=== PATIENT | male | born 1945 | race Caucasian/White ===

== ENCOUNTER 2019-09-12 10:34 | Outpatient (CLI) | payer MEDICARE, SELFPAY ==
[2019-09-12 11:03] LABS: Basophils Percent Auto 0.7 % (0.2-1.2); Eosinophils Absolute Auto 0.2 K/mm3 (0-0.3); Eosinophils Percent Auto 5.3 % (0-4.4); Hematocrit 47.1 % (42.0-52.0); Hemoglobin 15.5 g/dL (14.0-18.0); Immature Granulocyte Absolute 0.01 K/mm3 (0.00-0.031); Immature Granulocyte Percent A 0.2 % (0-0.5); Immature Platelet Fraction Pct 3.8 % (0.9-11.2); Lymphocytes Absolute Auto 1.95 K/mm3 (0.9-3.2); Lymphocytes Percent Auto 45.2 % (18.3-44.2); Mean Corpuscular HGB Conc 32.9 g/dl (32-36); Mean Corpuscular Volume 88.2 fl (80-100); Mean Platelet Volume 10.7 fl (7.4-10.4); Monocytes Absolute Auto 0.5 K/mm3 (0.1-0.6); Monocytes Percent Auto 12.1 % (2.6-8.5); Neutrophils Absolute Auto 1.6 K/mm3 (1.3-6.7); Neutrophils Percent Auto 36.5 % (45.5-73.1); Platelet Count Result 137 k/mm3 (150-375); Red Blood Count 5.34 M/mm3 (4.6-6.20); Red Cell Distribution Width 14.6 % (11.5-14.5); White Blood Count 4.3 K/mm3 (4.5-10.0)
[2019-09-12 11:14] LABS: Blood Urea Nitrogen 18 mg/dL (9-20); Calcium 9.2 mg/dL (8.4-10.2); Carbon Dioxide 30 mmol/L (22-30); Chloride 104 mmol/L (98-107); Cholesterol 141 mg/dL (0-200); Estimated Glomerular Filt Rate > 60; Glucose 129 mg/dL (75-110); HDL Direct 32 mg/dL; Potassium 4.6 mmol/L (3.4-5.0); Sodium 139 mmol/L (137-145); Triglycerides 159 mg/dL (<150)
[2019-09-12 11:15] LABS: Hemoglobin A1C 6.6 % (<5.7)
[2019-09-12 11:25] LABS: LDL Cholesterol Direct 71 mg/dL
[2019-09-12 11:42] LABS: Creatinine Urine 44.7 mg/dL
[2019-09-12 11:43] LABS: Prostate Specific Antigen 0.8 ng/mL (< OR = 4.0)
[2019-09-12 11:51] LABS: MALB Creatinine Ratio < 13.4 mg/g (0-30); Microalbumin Urine Random < 6.0 mg/L (0-16.7)
== END 2019-09-12 10:35 | disposition home or self-care (01) ==
LOC: ANHLAB 10:45
PROVIDERS: PCP Internal Medicine; Visit Provider Internal Medicine
DX: Z12.5 Encounter for screening for malignant neoplasm of prostate (principal); D69.6 Thrombocytopenia, unspecified; E11.9 Type 2 diabetes mellitus without complications; E78.5 Hyperlipidemia, unspecified
CPT/HCPCS: 36415; 80048; 80061; 82043; 83036; 84153; 85025; 85055; G0103

== ENCOUNTER 2020-03-16 09:30 | Outpatient (CLI) | payer MEDICARE, SELFPAY ==
[2020-03-16 09:54] LABS: Hemoglobin A1C 6.6 % (<5.7)
[2020-03-16 10:00] LABS: Alanine Aminotransferase 20 U/L (4-50); Alkaline Phosphatase 44 U/L (38-126); Anion Gap 6 mmol/L (8-16); Aspartate Amino Transferase 34 U/L (17-59); Bilirubin,Total 0.8 mg/dL (0.2-1.3); Blood Urea Nitrogen 25 mg/dL (9-20); Calcium 9.2 mg/dL (8.4-10.2); Carbon Dioxide 31 mmol/L (22-30); Chloride 102 mmol/L (98-107); Cholesterol 140 mg/dL (0-200); Estimated Glomerular Filt Rate > 60; Glucose 147 mg/dL (75-110); HDL Direct 33 mg/dL; Potassium 4.5 mmol/L (3.4-5.0); Sodium 139 mmol/L (137-145); Triglycerides 156 mg/dL (<150)
[2020-03-16 10:11] LABS: LDL Cholesterol Direct 76 mg/dL
[2020-03-16 12:24] LABS: Vitamin D 25 Hydroxy 51.6 ng/mL
== END 2020-03-16 09:31 | disposition home or self-care (01) ==
PROVIDERS: PCP Internal Medicine; Visit Provider Internal Medicine
DX: E55.9 Vitamin D deficiency, unspecified (principal); E11.9 Type 2 diabetes mellitus without complications; Z51.81 Encounter for therapeutic drug level monitoring; E78.5 Hyperlipidemia, unspecified
CPT/HCPCS: 36415; 80053; 80061; 82306; 83036

== ENCOUNTER 2020-09-14 11:22 | Outpatient (CLI) | payer MEDICARE, SELFPAY ==
[2020-09-14 12:08] LABS: Basophils Percent Auto 0.6 % (0.2-1.2); Eosinophils Absolute Auto 0.2 K/mm3 (0-0.3); Eosinophils Percent Auto 3.7 % (0-4.4); Hematocrit 48.9 % (42.0-52.0); Lymphocytes Absolute Auto 1.99 K/mm3 (0.9-3.2); Lymphocytes Percent Auto 43.1 % (18.3-44.2); Mean Corpuscular HGB Conc 32.7 g/dl (32-36); Mean Corpuscular Volume 88.6 fl (80-100); Mean Platelet Volume 10.9 fl (7.4-10.4); Monocytes Absolute Auto 0.5 K/mm3 (0.1-0.6); Monocytes Percent Auto 10.6 % (2.6-8.5); Neutrophils Absolute Auto 1.9 K/mm3 (1.3-6.7); Platelet Count Result 151 k/mm3 (150-375); Red Blood Count 5.52 M/mm3 (4.6-6.20); Red Cell Distribution Width 14.3 % (11.5-14.5); White Blood Count 4.6 K/mm3 (4.5-10.0)
[2020-09-14 12:16] LABS: Alanine Aminotransferase 20 U/L (4-50); Albumin Level 4.2 g/dL (3.5-5.1); Alkaline Phosphatase 51 U/L (38-126); Anion Gap 4 mmol/L (8-16); Aspartate Amino Transferase 33 U/L (17-59); Bilirubin,Total 0.8 mg/dL (0.2-1.3); Blood Urea Nitrogen 18 mg/dL (9-20); Calcium 8.9 mg/dL (8.4-10.2); Carbon Dioxide 29 mmol/L (22-30); Chloride 107 mmol/L (98-107); Cholesterol 140 mg/dL (0-200); Estimated Glomerular Filt Rate > 60; Glucose 133 mg/dL (75-110); HDL Direct 34 mg/dL; Potassium 4.4 mmol/L (3.4-5.0); Sodium 140 mmol/L (137-145); Triglycerides 139 mg/dL (<150)
[2020-09-14 12:27] LABS: LDL Cholesterol Direct 77 mg/dL
[2020-09-14 12:29] LABS: Hemoglobin A1C 6.7 % (<5.7)
[2020-09-14 12:48] LABS: MALB Creatinine Ratio < 9.1 mg/g (0-30); Microalbumin Urine Random < 6.0 mg/L (0-16.7)
== END 2020-09-14 11:23 | disposition home or self-care (01) ==
PROVIDERS: PCP Internal Medicine; Visit Provider Nurse Practitioner
DX: Z12.5 Encounter for screening for malignant neoplasm of prostate (principal); E11.9 Type 2 diabetes mellitus without complications; D64.9 Anemia, unspecified; E78.2 Mixed hyperlipidemia
CPT/HCPCS: 36415; 80053; 80061; 82043; 83036; 85025

== ENCOUNTER 2021-03-23 10:10 | Outpatient (CLI) | payer MEDICARE, SELFPAY ==
[2021-03-23 11:01] LABS: Alanine Aminotransferase 18 U/L (4-50); Albumin Level 4.2 g/dL (3.5-5.1); Alkaline Phosphatase 47 U/L (38-126); Anion Gap 9 mmol/L (8-16); Aspartate Amino Transferase 30 U/L (17-59); Bilirubin,Total 0.8 mg/dL (0.2-1.3); Blood Urea Nitrogen 19 mg/dL (9-20); Calcium 9.3 mg/dL (8.4-10.2); Carbon Dioxide 27 mmol/L (22-30); Chloride 106 mmol/L (98-107); Cholesterol 128 mg/dL (0-200); Estimated Glomerular Filt Rate > 60; Glucose 151 mg/dL (65-110); HDL Direct 35 mg/dL; Potassium 4.5 mmol/L (3.4-5.0); Sodium 142 mmol/L (137-145); Triglycerides 139 mg/dL (<150)
[2021-03-23 11:12] LABS: LDL Cholesterol Direct 65 mg/dL
[2021-03-23 11:17] LABS: Hemoglobin A1C 6.8 % (<5.7)
[2021-03-23 11:31] LABS: Prostate Specific Antigen 0.7 ng/mL (< OR = 4.0)
[2021-03-23 12:11] LABS: Creatinine Urine 57.5 mg/dL
[2021-03-23 12:15] LABS: Microalbumin Urine Random 6.3 mg/L (0-16.7)
[2021-03-23 13:41] LABS: Vitamin D 25 Hydroxy 52.8 ng/mL
== END 2021-03-23 10:11 | disposition home or self-care (01) ==
PROVIDERS: PCP Internal Medicine; Visit Provider Internal Medicine
DX: Z12.5 Encounter for screening for malignant neoplasm of prostate (principal); Z51.81 Encounter for therapeutic drug level monitoring; E11.9 Type 2 diabetes mellitus without complications; E78.5 Hyperlipidemia, unspecified; E55.9 Vitamin D deficiency, unspecified
CPT/HCPCS: 36415; 80053; 80061; 82043; 82306; 83036; 84153; G0103

== ENCOUNTER 2021-10-03 10:34 | Outpatient (CLI) | payer MEDICARE, SELFPAY ==
[2021-10-03 11:28] LABS: Alanine Aminotransferase 19 U/L (4-50); Alkaline Phosphatase 59 U/L (38-126); Anion Gap 6 mmol/L (8-16); Aspartate Amino Transferase 35 U/L (17-59); Blood Urea Nitrogen 19 mg/dL (9-20); Calcium 8.6 mg/dL (8.4-10.2); Carbon Dioxide 26 mmol/L (22-30); Chloride 106 mmol/L (98-107); Cholesterol 133 mg/dL (0-200); Estimated Glomerular Filt Rate > 60; Glucose 131 mg/dL (65-110); HDL Direct 32 mg/dL; Potassium 4.1 mmol/L (3.4-5.0); Sodium 138 mmol/L (137-145); Triglycerides 146 mg/dL (<150)
[2021-10-03 11:34] LABS: LDL Cholesterol Direct 56 mg/dL
[2021-10-03 11:43] LABS: Albumin Level 4.1 g/dL (3.5-5.1)
[2021-10-03 11:49] LABS: Hemoglobin A1C 6.3 % (<5.7)
== END 2021-10-03 10:35 | disposition home or self-care (01) ==
LOC: ANHLAB 10:38
PROVIDERS: PCP Internal Medicine; Visit Provider Nurse Practitioner
DX: E78.2 Mixed hyperlipidemia (principal); E11.9 Type 2 diabetes mellitus without complications
CPT/HCPCS: 36415; 80053; 80061; 83036

== ENCOUNTER 2022-04-17 11:04 | Outpatient (CLI) | payer MEDICARE, SELFPAY ==
[2022-04-17 12:18] LABS: Alanine Aminotransferase 24 U/L (6-50); Albumin Level 4.3 g/dL (3.5-5.1); Alkaline Phosphatase 73 U/L (38-126); Anion Gap 8 mmol/L (8-16); Aspartate Amino Transferase 36 U/L (17-59); Blood Urea Nitrogen 20 mg/dL (9-20); Calcium 8.7 mg/dL (8.4-10.2); Carbon Dioxide 28 mmol/L (22-30); Chloride 103 mmol/L (98-107); Cholesterol 153 mg/dL (0-200); Estimated Glomerular Filt Rate > 60; Glucose 178 mg/dL (65-110); HDL Direct 34 mg/dL; Potassium 4.3 mmol/L (3.4-5.0); Sodium 139 mmol/L (137-145); Triglycerides 162 mg/dL (<150)
[2022-04-17 12:29] LABS: Hemoglobin A1C 7.1 % (<5.7)
[2022-04-17 12:31] LABS: LDL Cholesterol Direct 77 mg/dL
[2022-04-17 12:48] LABS: Prostate Specific Antigen 0.9 ng/mL (< OR = 4.0)
[2022-04-17 13:02] LABS: Vitamin D 25 Hydroxy 41.1 ng/mL
== END 2022-04-17 11:05 | disposition home or self-care (01) ==
LOC: ANHLAB 11:05
PROVIDERS: PCP Internal Medicine; Visit Provider Internal Medicine
DX: E78.5 Hyperlipidemia, unspecified (principal); Z12.5 Encounter for screening for malignant neoplasm of prostate; Z51.81 Encounter for therapeutic drug level monitoring; E55.9 Vitamin D deficiency, unspecified; E11.9 Type 2 diabetes mellitus without complications
CPT/HCPCS: 36415; 80053; 80061; 82306; 83036; 84153; G0103

== ENCOUNTER 2022-10-19 10:55 | Outpatient (CLI) | payer MEDICARE, SELFPAY ==
[2022-10-19 11:53] LABS: Alanine Aminotransferase 22 U/L (6-50); Albumin Level 4.2 g/dL (3.5-5.1); Alkaline Phosphatase 55 U/L (38-126); Anion Gap 6 mmol/L (8-16); Aspartate Amino Transferase 32 U/L (17-59); Blood Urea Nitrogen 19 mg/dL (9-20); Calcium 8.8 mg/dL (8.4-10.2); Carbon Dioxide 27 mmol/L (22-30); Chloride 103 mmol/L (98-107); Cholesterol 138 mg/dL (0-200); Estimated Glomerular Filt Rate > 60; Glucose 143 mg/dL (65-110); HDL Direct 32 mg/dL; Potassium 4.4 mmol/L (3.4-5.0); Sodium 136 mmol/L (137-145); Triglycerides 184 mg/dL (<150)
[2022-10-19 12:04] LABS: LDL Cholesterol Direct 68 mg/dL
[2022-10-19 12:07] LABS: Hemoglobin A1C 7.1 % (<5.7)
== END 2022-10-19 10:56 | disposition home or self-care (01) ==
PROVIDERS: Nurse Practitioner; PCP Family Medicine; Visit Provider Family Medicine
DX: E78.5 Hyperlipidemia, unspecified (principal); E11.9 Type 2 diabetes mellitus without complications
CPT/HCPCS: 36415; 80053; 80061; 83036

== ENCOUNTER 2024-02-15 09:17 | Outpatient (CLI) | payer MEDICARE, SELFPAY ==
[2024-02-15 09:46] LABS: Basophils Percent Auto 0.4 % (0.2-1.2); Eosinophils Absolute Auto 0.1 K/mm3 (0-0.3); Eosinophils Percent Auto 1.9 % (0-4.4); Hematocrit 41.9 % (42.0-52.0); Hemoglobin 13.2 g/dL (14.0-18.0); Immature Granulocyte Absolute 0.01 K/mm3 (0.00-0.031); Immature Granulocyte Percent A 0.2 % (0-0.5); Lymphocytes Absolute Auto 1.72 K/mm3 (0.9-3.2); Lymphocytes Percent Auto 36.2 % (18.3-44.2); Mean Corpuscular HGB Conc 31.5 g/dl (32-36); Mean Corpuscular Hemoglobin 25.8 pg (26-34); Mean Corpuscular Volume 81.8 fl (80-100); Mean Platelet Volume 9.4 fl (7.4-10.4); Monocytes Absolute Auto 0.5 K/mm3 (0.1-0.6); Monocytes Percent Auto 10.9 % (2.6-8.5); Neutrophils Absolute Auto 2.4 K/mm3 (1.3-6.7); Neutrophils Percent Auto 50.4 % (45.5-73.1); Platelet Count Result 132 k/mm3 (150-375); Red Blood Count 5.12 M/mm3 (4.6-6.20); Red Cell Distribution Width 17.8 % (11.5-14.5); White Blood Count 4.8 K/mm3 (4.5-10.0)
[2024-02-15 09:59] LABS: Alanine Aminotransferase 13 U/L (6-50); Albumin Level 3.9 g/dL (3.5-5.1); Alkaline Phosphatase 76 U/L (38-126); Anion Gap 10 mmol/L (4-12); Aspartate Amino Transferase 20 U/L (17-59); Bilirubin,Total 1.2 mg/dL (0.2-1.3); Blood Urea Nitrogen 17 mg/dL (9-20); Calcium 8.8 mg/dL (8.4-10.2); Carbon Dioxide 30 mmol/L (22-30); Chloride 99 mmol/L (98-107); Cholesterol 114 mg/dL (0-200); Estimated Glomerular Filt Rate > 60; Glucose 167 mg/dL (65-110); HDL Direct 30 mg/dL; Sodium 139 mmol/L (137-145); Triglycerides 185 mg/dL (<150)
[2024-02-15 10:09] LABS: LDL Cholesterol Direct 40 mg/dL
[2024-02-15 10:29] LABS: Prostate Specific Antigen 2.1 ng/mL (< OR = 4.0)
[2024-02-15 10:34] LABS: Hemoglobin A1C 7.5 % (<5.7)
== END 2024-02-15 09:18 | disposition home or self-care (01) ==
LOC: ANHLAB 09:30
PROVIDERS: PCP Nurse Practitioner Family; Visit Provider Internal Medicine
DX: Z12.5 Encounter for screening for malignant neoplasm of prostate (principal); E55.9 Vitamin D deficiency, unspecified; E78.2 Mixed hyperlipidemia; E11.9 Type 2 diabetes mellitus without complications; I48.0 Paroxysmal atrial fibrillation; D69.6 Thrombocytopenia, unspecified
CPT/HCPCS: 36415; 80053; 80061; 82306; 83036; 84153; 85025; G0103

== ENCOUNTER 2024-03-27 10:01 | Emergency (ER) | payer MEDICARE, SELFPAY ==
--- NOTE | ~2024-03-27 | CT_ITS ---
EXAMINATION: CT brain wo con DATE: 03/27/2024 10:36 INDICATION: Head injury. Fall. TECHNIQUE: Computed tomography (CT) of the head was performed without intravenous contrast. The mA wa s adjusted according to patient size. Iterative reconstruction technique was employed. The dose-lengt h product was 681.00 mGy-cm. COMPARISON: None FINDINGS: There is an old infarct in right frontal lobe. There are scattered areas of low attenuation in the cerebral white matter. There is no intracranial hemorrhage, acute infarction, or abnormal int racranial mass lesion. There is ex vacuo dilatation of right lateral ventricle. There is mild mucosal thickening in the paranasal sinuses. There are likely changes of ocular lens replacement surgeries. The mastoid air cells are normal. IMPRESSION: 1. Old infarct in the right frontal lobe. 2. Moderate nonspecific cerebral white matter disease, which likely represents chronic small vessel i schemic disease. Reviewed, dictated and finalized at location A. IMPRESSION: 1. Old infarct in the right frontal lobe. 2. Moderate nonspecific cerebral white matter disease, which likely represents chronic small vessel ischemic disease.
--- NOTE | ~2024-03-27 | CT_ITS ---
EXAMINATION: CT cervical spine wo con DATE: 03/27/2024 10:37 INDICATION: Neck injury. Fall. TECHNIQUE: Computed tomography (CT) of the cervical spine was performed without intravenous contrast. Automated exposure control and iterative reconstruction technique were employed. The dose-length pro duct was 421.09 mGy-cm. COMPARISON: None FINDINGS: There is mild kyphosis of cervical spine. There is mild chronic anterior wedging of C7 and T1 vertebral bodies. There is moderately decreased disc height at C3-C4 and severely decreased disc h eight from C4-C5 through C6-C7. The following disc levels are specifically discussed: C2-C3: There is no uncovertebral joint osteoarthritis. There is severe right and mild left facet join t osteoarthritis. There is no neural foraminal stenosis. There is no central canal stenosis. C3-C4: There is severe right and mild left uncovertebral joint osteoarthritis. There is severe right and moderate left facet joint osteoarthritis. There is mild right neural foraminal stenosis. There is mild central canal stenosis. C4-C5: There is severe right and mild left uncovertebral joint osteoarthritis. There is severe bilate ral facet joint osteoarthritis. There is mild bilateral neural foraminal stenosis. There is mild cent ral canal stenosis. C5-C6: There is severe bilateral uncovertebral joint osteoarthritis. There is mild bilateral facet chung int osteoarthritis. There is mild bilateral neural foraminal stenosis. There is mild central canal st enosis. C6-C7: There is mild right and severe left uncovertebral joint osteoarthritis. There is severe bilate ral facet joint osteoarthritis. There is mild bilateral neural foraminal stenosis. There is mild cent ral canal stenosis. C7-T1: There is no uncovertebral joint osteoarthritis. There is severe bilateral facet joint osteoart hritis. There is mild bilateral neural foraminal stenosis. There is no central canal stenosis. IMPRESSION: 1. No fracture. 2. Severe cervical spondylosis. Reviewed, dictated and finalized at location A.
[2024-03-27 10:08] VITALS: BP 158/66; PULSE 60; RESP 16; TEMP 36.6; O2SAT 100
--- NOTE | 2024-03-27 11:25 | ED.FALL ---
HPI - Fall General Chief Complaint: Fall Stated Complaint: fell at 0300 hit back of head, takes elequis Time Seen by Provider: 03/27/24 10:12 Source: patient Mode of arrival: ambulatory Limitations: no limitations History of Present Illness HPI Narrative: 79-year-old with a history of CVA, diabetes, paroxysmal atrial fib on Eliquis here with the complaints of fall the middle of the night. Patient states that he lost his balance while he was trying to go to the restroom. He denies LOC. He states that he hit is head against the nightstand. Noticed some blood on the pillow this morning. complaint: fall Onset (ago): hour(s) (6) Fall from: standing Place fall occurred: home Loss of consciousness: none Prolonged down time: no Context: other (Lost balance) Location of injury: head Associated symptoms (after fall): denies Related Data Home Medications Medication Instructions Recorded Confirmed vit C 250 mg-vit E 200 unit-zinc cap PO 09/20/20 02/29/24 ox 12.5 [id number] capsule (ICaps AREDS2) acetaminophen 500 mg tablet 1,000 mg PO .COMPLEX PRN 06/26/23 02/29/24 (Tylenol Extra Strength) ascorbic acid (vitamin C) 500 mg 500 mg PO DAILY 06/26/23 02/29/24 tablet cholecalciferol (vitamin D3) 125 125 mcg PO DAILY 06/26/23 02/29/24 mcg (5,000 unit) capsule magnesium oxide 400 mg (241.3 mg 400 mg PO DAILY 06/26/23 02/29/24 magnesium) tablet sotalol 80 mg tablet 80 mg PO DAILY 06/26/23 02/29/24 Allergies Allergy/AdvReac Type Severity Reaction Status Date / Time No Known Allergies Allergy Verified 03/27/24 10:02 Review of Systems Review of Systems: All systems reviewed & are unremarkable except as noted in HPI and below Constitutional: Constitutional: Reports no additional constitutional complaints Eyes: Eyes: Reports no additional eye complaints ENT: Reports system reviewed and no additional complaints, except as documented Cardiovascular: Cardiovascular: Reports no additional cardiovascular complaints Respiratory: Respiratory: Reports no additional respiratory complaints Gastrointestinal: Gastrointestinal: Reports no additional gastrointestinal complaints Musculoskeletal: Musculoskeletal: Reports no additional musculoskeletal complaints Neurologic: Reports system reviewed and no additional complaints, except as documented [facility] Past Medical History Medical History CVA (cerebral vascular accident) Mixed hyperlipidemia Paroxysmal atrial fibrillation Polyosteoarthritis, unspecified Screening for colon cancer Screening for prostate cancer Thrombocytopenia, unspecified Type 2 diabetes mellitus without complications Vitamin D deficiency Surgical History Surgical History History of appendectomy Family History Family History (Reviewed 03/27/24 @ 11: by Tomasz Dockery MD) Sibling Family history of type 2 diabetes mellitus Diabetes mellitus Social History Social History Smoking packs per day: 0.5 Smoking cigarettes per day: 10.0 Years smoked: 10 Smoking pack-years: 5.00 Smoking status: Former smoker Tobacco type: cigarettes Second hand tobacco smoke exposure: No Smoking end date: 06/04/75 Alcohol intake: former Substance use: never Substance use type: does not use Lack of Transportation: No Lack of Food: Never True Current Housing: I Have Housing Concerned About Future Housing: No Difficulty Paying Gas/Electric Bills: No Difficulty Paying for Meds: No Currently Unemployed: No Education: Bachelor's Degree Difficulty w/ Childcare or Family Care: No Exam Narrative: GENERAL: Well-appearing, well-nourished, and in no acute distress. HEAD: Normocephalic, atraumatic.A small puncture wound on the scalp EYES: PERRLA and EOMI. ENT: Nares clear, NECK: Supple. CHEST: Clear to auscultation. No respiratory distress. HEART: Regular rate and rhythm. No murmur heard. Normal peripheral pulses. ABDOMEN: Soft, nontender, nondistended, normal active bowel sounds. EXTREMITIES: Normal range of motion. No edema. SKIN: Warm, dry, no rash. NEURO: No focal deficits. Alert and oriented x3. PSYCH: Normal mood and affect. Course Course Emergency Course: Patient comfortably resting in no discomfort. Informed him and his friend about his CT findings. Advised fall precautions continue home medication Vital Signs Vital signs: Vital Signs Temperature 36.6 C 03/27/24 10:08 Pulse Rate 60 03/27/24 10:08 Respiratory Rate 16 03/27/24 10:08 Blood Pressure 158/66 H 03/27/24 10:08 Pulse Oximetry 100 03/27/24 10:08 Oxygen Delivery Room Air 03/27/24 10:08 Temperature 36.6 C 03/27/24 10:08 Pulse Rate 60 03/27/24 10:08 Respiratory Rate 16 03/27/24 10:08 Blood Pressure 158/66 H 03/27/24 10:08 Pulse Oximetry 100 03/27/24 10:08 Oxygen Delivery Room Air 03/27/24 10:08 MDM - Fall MDM Narrative Medical decision making narrative: 79-year-old with a history of CVA, paroxysmal atrial fib on Eliquis history of fall last night home with no LOC is neurologically intact will do a CT of the head to make sure has no intracerebral bleed. Differential Diagnosis Differential diagnosis: Likely concussion with loss of consciousness Medical Records Attestation: I reviewed the patient's medical records. Imaging Data Radiologist's impression: ITS Impressions Head CT 03/27/24 10:38 IMPRESSION: 1. Old infarct in the right frontal lobe. 2. Moderate nonspecific cerebral white matter disease, which likely represents chronic small vessel ischemic disease. Cervical Spine CT 03/27/24 10:45 IMPRESSION: 1. No fracture. 2. Severe cervical spondylosis. Discharge Plan Discharge Clinical Impression: Minor head injury Qualifiers: Encounter type: initial encounter Qualified Code(s): S09.90XA - Unspecified injury of head, initial encounter Patient Disposition: Home, Self-Care Condition: Stable Instructions: Head Injury (ED) Additional Instructions: Continue home medications, fall precautions. Follow-up with your primary doctor as needed Prescriptions: No Action doxepin 10 mg capsule 20 mg PO QHS Qty: 60 4RF ICaps AREDS2 250 mg-200 unit -12.5 mg-1 mg capsule PO ascorbic acid (vitamin C) 500 mg tablet 500 mg PO DAILY cholecalciferol (vitamin D3) 125 mcg (5,000 unit) capsule 125 mcg PO DAILY magnesium oxide 400 mg (241.3 mg magnesium) tablet 400 mg PO DAILY Rx Instructions: 2xday sotalol 80 mg tablet 80 mg PO DAILY Rx Instructions: 2xday acetaminophen [Tylenol Extra Strength] 500 mg tablet 1,000 mg PO .COMPLEX PRN Rx Instructions: 1,000 mg orally Q8H PRN; Eliquis 5 mg tablet 5 mg PO BID Qty: 60 4RF (DME) [employer] Test Strip See Rx Instructions .ROUTE .COMPLEX Qty: 200 1RF Dose Instruction: USE TO TEST BLOOD SUGAR 2 TIMES DAILY Rx Instructions: USE TO TEST BLOOD SUGAR 2 TIMES DAILY (DME) blood-glucose meter [OneTouch Ultra2 Meter] Misc See Rx Instructions .Route Qty: 1 1RF Rx Instructions: As directed (DME) lancets [OneTouch UltraSoft 2 Lancet] 30 gauge misc See Rx Instructions .Route Qty: 100 0RF Rx Instructions: As directed; test daily Follow-up/Referrals: Dusty Gary DO [Primary Care Provider] - Time of Disposition: 11:34
[2024-03-27 11:46] VITALS: BP 146/68; PULSE 77; RESP 17; TEMP 36.6; O2SAT 98
== END 2024-03-27 11:47 | disposition home or self-care (01) ==
PROVIDERS: Emergency Provider Family Medicine; PCP Internal Medicine
DX: S09.90XA Unspecified injury of head, initial encounter (principal); W22.03XA Walked into furniture, initial encounter; Z79.01 Long term (current) use of anticoagulants; I48.0 Paroxysmal atrial fibrillation; E11.9 Type 2 diabetes mellitus without complications; Z86.73 Personal history of transient ischemic attack (TIA), and cerebral infarction without residual deficits; E55.9 Vitamin D deficiency, unspecified; E78.2 Mixed hyperlipidemia; Z87.891 Personal history of nicotine dependence
CPT/HCPCS: 70450; 72125; 99284

== ENCOUNTER 2025-05-05 08:48 | Outpatient (CLI) | payer MEDICARE, SELFPAY ==
--- OUTSIDE RECORDS SUMMARY | 2025-05-05 09:12 | XMS_ITS | Clinical Summary ---
Author Organization [facility] [address] Address [address] [place] [address] Care Team Providers Care Commercial Banker Name Role Phone Queta iWlliamson NP Primary Care Provider [phone] [facility] Unavailable Allergies No known active allergies Medications acetaminophen (TYLENOL) 325 mg tabletIndications: Fever,Pain Take 2 tablets (650 mg total) by mouth every 4 (four) hours as needed for pain, headaches or fever 06/15/19 25 Active Additional Information Patient not taking.Reported on 10/03/2024 atorvastatin (LIPITOR) 40 mg tabletIndications: Hyperlipidemia, unspecified hyperlipidemia type,Cerebrovascul ar accident (CVA), unspecified mechanism (HCC),Type 2 diabetes mellitus with hyperglycemia, without long-term current use of insulin (HCC) Take 1 tablet (40 mg total) by mouth nightly 06/15/19 25 Active levETIRAcetam (KEPPRA) 750 mg tabletIndications: Cerebrovascular accident (CVA), unspecified mechanism (HCC) Take 1 tablet (750 mg total) by mouth 2 (two) times a day 06/15/[address] (PROTONIX) 40 mg EC tabletIndications: Gastro-esophageal reflux disease without esophagitis Take 1 tablet (40 mg total) by mouth daily 06/15/19 Active Januvia 100 mg tabletIndications: Type 2 diabetes mellitus with hyperglycemia, without long-term current use of insulin (HCC) Take 1 tablet (100 mg total) by mouth daily 06/15/19 Active apixaban (ELIQUIS) 2.5 mg tablet Take 1 tablet (2.5 mg total) by mouth 2 (two) times a day Active ferrous sulfate 325 mg (65 mg of elemental iron) tabletIndications: Iron Deficiency Anemia Take 1 tablet (325 mg total) by mouth daily with breakfast Active sotaloL (BETAPACE) 80 mg tablet Take 1 tablet (80 mg total) by mouth 2 (two) times a day Active Active Problems Problem Noted Date Diagnosed Date Neutropenia 10/03/2024 Frequent falls 10/02/2024 Fall 08/05/2024 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 Keppra F/u with neurology outpatient, likely can DC keppra 750mg Assessment & Plan (06/30/2024 3:50 PM GREENHOUSE LABORER): Isolated eipsode EEG consistent with encephalopathy Chronic cva Continue b.i.d. Keppra Assessment & Plan (06/20/2024 3:08 PM GREENHOUSE LABORER): Isolated eipsode EEG consistent with encephalopathy Continue b.i.d. Keppra Repeat electrolytes Assessment & Plan (06/16/2024 12:55 PM GREENHOUSE LABORER): No recurrent seizures EEG consistent with encephalopathy Continue b.i.d. Keppra Monitor electrolytes Mild malnutrition 05/21/2024 Cerebrovascular accident (CVA) 05/17/2024 Assessment & Plan (06/30/2024 3:48 PM GREENHOUSE LABORER): Ongoing weakness, cognitive impairments and recurrent falls Recommend DC eliquis, brother declines Continue PT/OT Supportive care Poor safety awareness and remains a fall risk Assessment & Plan (06/27/2024 12:19 PM GREENHOUSE LABORER): Ongoing weakness, cognitive impairments and recurrent falls Recommend DC eliquis, will discuss again with brother Continue PT/OT Supportive care Poor safety awareness and remains a fall risk Assessment & Plan (06/16/2024 12:51 PM GREENHOUSE LABORER): No acute deficits Ambulatory with walker Baseline extensive cerebrovascular disease with underlying cognitive impairment Continue low-dose b.i.d. Eliquis Atorvastatin 40 mg daily Maintain BP and glycemic control Continue PTOT Follow-up with neurology outpatient Remains a fall risk Vision abnormalities 05/17/2024 Dysphagia, unspecified 10/23/2023 Cognitive communication deficit 07/31/2023 Assessment & Plan (06/16/2024 12:54 PM GREENHOUSE LABORER): Alert to self only, had some delirium inpatient, continue Zyprexa for now, consider GDR as able History of intracranial hemorrhage 07/25/2023 Assessment & Plan (07/25/2023 12:19 AM GREENHOUSE LABORER): Probably related to Xarelto which he was on for PAF; discontinued following event in 03/2023 Recent MRI showed improving hemorrhage with resolution of intraventricular component Atrial fibrillation with rapid ventricular respo nse 07/25/2023 Assessment & Plan (07/05/2024 9:59 AM GREENHOUSE LABORER): Continue scripting Eliquis, sotalol Arterial fibromuscular dysplasia 06/11/2023 Constipation, unspecified 06/11/2023 Gastro-esophageal reflux disease without esophag itis 06/11/2023 Assessment & Plan (07/08/2024 9:42 PM GREENHOUSE LABORER): Continue pantoprazole, consider GDR or DC given age, frailty, pill burden Insomnia, unspecified 06/11/2023 Hypo-osmolality and hyponatremia 06/11/2023 Other specified anxiety disorders 06/11/2023 Unspecified osteoarthritis, unspecified site 01/2024 Vitamin B deficiency, unspecified 06/11/2023 Vitamin D deficiency, unspecified 06/11/2023 Hyperlipidemia 05/31/2023 Assessment & Plan (07/08/2024 9:40 PM GREENHOUSE LABORER): Continue atorvastatin 40mg Heart healthy diet with exercise as tolerated Assessment & Plan (07/05/2024 9:59 AM GREENHOUSE LABORER): Continue scripting atorvastatin Assessment & Plan (07/25/2023 12:21 AM GREENHOUSE LABORER): Continue statin Severe malnutrition 05/27/2023 Hemiplegia and hemiparesis f ollowing cerebral infarction affecting left non-dominant side 05/14/2023 Assessment & Plan (07/08/2024 9:41 PM GREENHOUSE LABORER): Persistent cognitive and functional impairments with recurrent falls following CVA Continue statin Maintain BP and glycemic control Continue PT/OT F/u PCP Remains a fall risk Requires assistance with all care Assessment & Plan (06/20/2024 3:08 PM GREENHOUSE LABORER): Ongoing cognitive and functional impairments with recurrent falls Eliquis resumed prior to DC per POA request Continue atorvastatin 40mg daily BP and glycemic control Repeat basic labs Continue PT/OT Essential (primary) hypertension 05/07/2023 Assessment & Plan (07/08/2024 9:42 PM GREENHOUSE LABORER): Stable on sotalol BP goal <140/<90 F/u with PCP Nontraumatic subdural hemorrhage, unspecified Type 2 diabetes mellitus wit h hyperglycemia, without long-term current use of insulin 05/07/2023 Assessment & Plan (07/08/2024 9:39 PM GREENHOUSE LABORER): Stable on januvia HA1c 7.5% Continue DM diet accuchecks F/u with PCP Assessment & Plan (07/05/2024 10:00 AM GREENHOUSE LABORER): Continue scripting Januvia Assessment & Plan (06/30/2024 3:49 PM GREENHOUSE LABORER): Well controlled on Januvia 100 mg daily, continue A1c 7.5% inpatient Daily Accu-Cheks Dm diet Renal function normal this am Assessment & Plan (06/27/2024 12:20 PM GREENHOUSE LABORER): Well controlled on Januvia 100 mg daily, continue A1c 7.5% inpatient Daily Accu-Cheks Dm diet Assessment & Plan (06/20/2024 3:09 PM GREENHOUSE LABORER): Well controlled on Januvia 100 mg daily, continue A1c 7.5% inpatient Daily Accu-Cheks Glucose 199 this am Assessment & Plan (06/16/2024 12:53 PM GREENHOUSE LABORER): Stable on Januvia 100 mg daily, continue A1c 7.5% inpatient Daily Accu-Cheks Intracranial bleeding 04/01/2023 longterm current use of antiarrhythmic drug 11/2021 Paroxysmal atrial fibrillation 06/21/2017 Assessment & Plan (07/08/2024 9:40 PM GREENHOUSE LABORER): Rate controlled on sotalol Currently on eliquis 2.5mg BID with h/o PE Brother declines dc eliqiuis he stopped taking it and that's what put us in here Recurrent falls and at risk for both CVA and ICH Continue to monitor and maintain fall precautions F/u with PCP Assessment & Plan (06/30/2024 3:49 PM GREENHOUSE LABORER): Rate controlled on sotalol Currently on eliquis 2.5mg BID with h/o PE Brother declines dc eliqiuis he stopped taking it and that's what put us in here Recurrent falls and at risk for both CVA and ICH Continue to monitor and maintain fall precautiosn Assessment & Plan (06/27/2024 12:20 PM GREENHOUSE LABORER): Rate controlled on sotalol Currently on eliquis 2.5mg BID with h/o PE Consider dc eliquis Assessment & Plan (06/20/2024 3:09 PM GREENHOUSE LABORER): Rate controlled on exam Continue sotalol Continue Eliquis 2.5 mg b.i.d., family is aware of risks Follow-up with cardiology [facility] Assessment & Plan (06/16/2024 12:52 PM GREENHOUSE LABORER): Rate controlled on sotalol Continue Eliquis 2.5 mg b.i.d., family is aware of risks Follow-up with cardiology [facility] Assessment & Plan (07/25/2023 12:22 AM GREENHOUSE LABORER): Presented in RVR; RVR shown improvement with diltiazem infusion and IV labetalol Continue diltiazem infusion and wean down/off as tolerated; continue sotalol Resolved Problems Problem Noted Date Diagnosed Date Resolved Date Acute nonintractable headach e, unspecified headache type 05/17/2024 06/16/2024 Acute metabolic encephalopathy 10/17/2023 06/27/2024 Acute pulmonary embolism wit hout acute cor pulmonale 07/25/2023 06/27/2024 Assessment & Plan (07/25/2023 12:21 AM GREENHOUSE LABORER): Probably induced by COVID-19 infection; unclear as to the safety of initiating therapeutic anticoagulation Neurology consulted; discussed with the Neurology PA - recommended against therapeutic anticoagulation until evaluation in the a.m. Type 2 diabetes mellitus wit h hyperglycemia, without long-term current use of insulin 07/25/2023 06/15/2024 Assessment & Plan (07/25/2023 12:27 AM GREENHOUSE LABORER): NPO secondary to inability to swallow; ISS q.4 hours and bedside glucose monitoring ordered [employer] evaluation for inability to swallow - dysphagia versus cognitive COVID 07/25/2023 06/16/2024 COVID-19 07/24/2023 06/16/2024 Assessment & Plan (07/25/2023 12:18 AM GREENHOUSE LABORER): Not hypoxic so will hold off on steroids Continue remdesivir as ordered; monitor clinical course Pressure injury of skin of sacral region 05/31/2023 07/08/2024 Assessment & Plan (07/25/2023 12:21 AM GREENHOUSE LABORER): Wound care team consulted; defer management to the wound care team Osteomyelitis 05/31/2023 07/08/2024 AMS (altered mental status) 05/25/2023 06/27/2024 Encounters Date Type Department Care Team Description 04/01/2025 Telephone [facility] Medical [facility] Cardiology [address] [place] [id number] Franklin Pugh MD 04/01/2025 Telephone [facility] Medicine Cardiology [address] [facility] 8[address] [place] [address] [place] [id number] Bebo Andujar MD from Last 3 Months Immunizations Immunization Administration Dates Next Due Influenza, Quadrivalent, Hig h Dose, Preservative Free, Intrr 03/03/2020 Influenza, Trivalent, Adjuvanted, Intramuscular 02/04/2019 Influenza, Trivalent, High D ose, Split, Preservative Free, Intramuscular 02/13/2018,2017 Influenza, Trivalent, IM (MDV) 03/13/2013 Influenza, Trivalent, Preservative Free, Intramu scular 03/20/2014 Tdap 11/11/2017 Surgical History Surgery Date Site/Laterality Comments APPENDECTOMY 06/04/1967 - 06/03/1968 Appendectomy ANGIO SELECTIVE INTERNAL CAR OTID LEFT 04/02/2023 Left Medical History Medical History Date Comments Hx Other Medical Diabetes Type I I Hx Other Medical dyslipidemia PAF (paroxysmal atrial fibrillation) Arthritis 06/04/2008 Cataract 2015 Diabetes mellitus 06/04/2003 Family History Medical History Relation Name Comments Diabetes Brothdanni Mera Anesthesia problems Neg Hx Relation Name Status Comments Brothdanni Mera Social History Tobacco Use Types Packs/Day Years Used Date Smoking Tobacco: Former Cigarettes 0.5 14 0 09/02/1956 - 09/02/1970 Smokeless Tobacco: Never Tobacco Cessation:Counseling Given: Not Answered Alcohol Use Standard Drinks/Week Comments Not Currently 0 (1 standard drink = 0.6 oz pur e alcohol) [facility] Utilities Answer Date Recorded In the past 12 months has e electric, gas, oil, or water company threatened to shut off services in your home? No 10/03/2024 Social Connection and Isolation Panel Answer Date Recorded In a typical week, how many times do you talk on the phone with family, friends, or neighbors? More than three times a week 10/03/2024 How often do you get togethe r with friends or relatives? Once a week 10/03/2024 How often do you attend chur ch or islam services? Never 10/03/2024 Do you belong to any clubs o r organizations such as baptism groups, unions, fraternal or athletic groups, or school groups? No 10/03/2024 How often do you attend meet ings of the clubs or organizations you belong to? Never 10/03/2024 Are you , , di vorced, , never , or living with a partner? Never 10/03/2024 AUDIT-C Answer Date Recorded Q1: How often do you have a drink containing alc ohol? Never 09/05/2021 Average Number of Drinks Not on file 022 Frequency of Binge Drinking Not on file 09/2021 Overall Financial Resource Strain (CARDIA) Answe r Date Recorded How hard is it for you to pa y for the very basics like food, housing, medical care, and heating? Not hard at all 10/03/2024 PHQ-2 Answer Date Recorded PHQ-2 Total Score (If total score is 3 or more points, staff should administer the PHQ-9) 0 09/09/2019 Hunger Vital Sign Answer Date Recorded Within the past 12 months, y ou worried that your food would run out before you got the money to buy more. Never true 10/04/19 25 Within the past 12 months, t he food you bought just didn't last and you didn't have money to get more. Never true 10/03/2024 PRAPARE - Transportation Answer Date Re corded In the past 12 months, has l ack of transportation kept you from medical appointments or from getting medications? No 07/2024 In the past 12 months, has l ack of transportation kept you from meetings, work, or from getting things needed for daily living? No 10/03/2024 Housing Stability Vital Sign Answer Abner e Recorded In the last 12 months, was t here a time when you were not able to pay the mortgage or rent on time? No 07/25/2023 In the last 12 months, how many places have you lived? 2 07/25/2023 In the last 12 months, was t here a time when you did not have a steady place to sleep or slept in a residential (including now)? No 07/25/2023 Housing Stability Vital Sign Answer Abner e Recorded In the last 12 months, was t here a time when you were not able to pay the mortgage or rent on time? No 10/03/2024 In the past 12 months, how m any times have you moved where you were living? 0 10/03/2024 At any time in the past 12 m [facility], were you homeless or living in a residential (including now)? No 10/03/2024 Personal Safety Answer Date Recorded Have you ever been in or are you currently in a harmful physical or emotional relationship or is someone making you feel afraid or unsafe? Denies 10/02/2024 Sex and Gender Information Value Date Recorded Sex Assigned at Not on file Legal Sex Male 3:56 AM GREENHOUSE LABORER Gender Identity Not on file Sexual Orientation Straight 03/31/2021 9: 53 AM CDT Last Filed Vital Signs Vital Sign Reading Time Taken Comments Blood Pressure 99/65 10/07/2024 12:21 PM CDT Pulse 60 10/07/2024 12:21 PM CDT Temperature 36.3 C (97.3 F) 10/07/2024 12:21 PM CDT Respiratory Rate 18 10/07/2024 12:21 PM CDT Oxygen Saturation 95% 10/07/2024 12:21 PM CDT Inhaled Oxygen Concentration - - Weight 74 kg (163 lb 2.3 oz) 10/07/2024 4:15 AM CDT Height 180.3 cm (5' 10.98) 08/01/2024 10:18 PM GREENHOUSE LABORER Body Mass Index 22.76 08/01/2024 10:18 PM GREENHOUSE LABORER Plan of Treatment Health Maintenance Due Date Last Done Comments Albumin Creatinine Ratio, Urine 1945 Dilated Eye Exam 1945 Foot Exam 1945 Hepatitis B Screening 02/12/1964 Pneumococcal vaccine 65+ (1 of 2 - PCV) 1965 Zoster Vaccine (1 of 2) 02/12/1996 Well Visit 65+ 2011 Depression Screening 09/08/2020 09/09/2019 Hemoglobin A1C 01/27/2025 07/30/2024, 07/06, 05/17/2024, Additional history exists Influenza Vaccine (#1) 2025 , 02/04/2019, 02/13/2018, Additional history exists Lipid Panel 07/31/2025 07/31/2024, 05/04, 10/11/2021, Additional history exists Fall Risk Assessment 10/07/2025 10/07/2024 eGFR 10/07/2025 10/07/2024, 05/0 10/2024, 10/05/2024, Additional history exists DTaP/Tdap/Td Vaccine (3 - Td or Tdap) 05/16/2033 05/16/2023, 11/11/2017 Hepatitis C Screening Completed 04/03/2023 Abdominal Aortic Aneurysm (A AA) Screen Completed 06/12/2023, 05/25/2023 Medical Devices Implanted Type Area Clinical Advisor Device Identifier Shelf Expiration Date Model / Serial / Lot Vascade Mvp 6-12fr Venous Closure [id number] - [id number] Implanted:Qty : 1 on 09/05/2021 by Bebo Andujar MD at [facility] Collagen Right: Groin [employer] 06/09/2023 800-612C-[id number] [id number] / / [id number] Vascade Mvp 6-12fr Venous Closure [id number] - [id number] - [id number] Implanted:Qty : 1 on 09/05/2021 by Bebo Andujar MD at [facility] Collagen Right: Groin [employer] 04/18/2023 800-612C-1 [id number] / [id number] / [id number] Vascade Mvp 6-12fr Venous Closure [id number] - [id number] - [id number] Implanted:Qty : 1 on 09/05/2021 by Bebo Andujar MD at [facility] Collagen Left: Groin [employer] 04/18/2023 800-612C-1 [id number] / [id number] / [id number] Procedures Procedure Name Priority Date/Time Associated Diagnosis Comments EGFR Routine 10/07/2024 5:15 AM CDT LIPID PANEL Routine 07/31/2024 4:36 AM GREENHOUSE LABORER HEMOGLOBIN A1C Routine 07/30/2024 4:[address] ABDOMEN PELVIS WO CONTRAST ED Urgent/IP Urgent 05/25/2023 2:17 PM GREENHOUSE LABORER HEPATITIS PANEL, ACUTE STAT 04/03/2023 4:00 PM CDT from Last 3 Months or Most Recently Relevant to Health Maintenance Results * eGFR (10/07/2024 5:15 AM CDT) eGFR 80 >=60 mL/min/1. 73 m2 Comment: Interpretive Data Reference Interval Normal >/= 90 mL/min/1.73m2 Mildly decreased* 60 - 89 mL/min/1.73m2 Mildly to moderately decreased 45 - 59 mL/min/1.73m2 Moderately to severely decreased 30 - 44 mL/min/1.73m2 Severely decreased 15 - 29 mL/min/1.73m2 Kidney Failure < 15 mL/min/1.73m2 *Relative to young adult level Estimated glomerular filtration rate is determined by the 2020 CKD-EPI equation recommended by the National Kidney Foundation (A Unifying Approach to GFR Estimation: Recommendations of the NKF-ASK Task Force on Reassessing the Inclusion of Race in Diagnosing Kidney Disease, JASN 2020). The CKD-EPI equation should not be used for patients with unstable renal function and has not been validated in children and those over 70. Current interpretive data was last reviewed 2021. Testing performed by: [facility], [address] [place] [address], [place]., [address] Blood 10/07/2024 5:15 AM CDT 10/07/2024 5:55 AM CDT us Aba Blanchard MD LAB BLOOD ORDERABLES Final Res ult [facility] [address] [place] [address] * (ABNORMAL) Lipid panel (07/31/2024 4:36 AM GREENHOUSE LABORER) [facility] Cholesterol 94 30 - 199 mg/dL Comment: Interpretive Data Ages < or = 19 years Acceptable: <170 mg/dL Borderline high: 170-199 mg/dL High: >or= 200 mg/dL Ages > or = 20 years Desirable: <200 mg/dL Borderline high: 200-239 mg/dL High: >or= 240 mg/dL Literature References: 1. Expert Panel on Integrated Guidelines for Cardiovascular Health and Risk Reduction in Children and Adolescents. Pediatrics 2011;128:S213 2. NCEP Expert Panel. Circulation 2004;110:227 Current Interpretive Data was last revised on 2018. Testing performed by: [address] [address] Triglycerides 119 <=149 mg/dL [facility] Comment: Interpretive Data Ages < or = 9 years Acceptable: <75 mg/dL Borderline high: 75-99 mg/dL High: >or= 100 mg/dL Ages 10 to 20 years Acceptable: <90 mg/dL Borderline high: 90-129 mg/dL High: >or= 130 mg/dL Ages > or = 20 years Desirable: <150 mg/dL Borderline high: 150-199 mg/dL High: 200-499 mg/dL Very high: >or= 499 mg/dL Literature References: 1. Expert Panel on Integrated Guidelines for Cardiovascular Health and Risk Reduction in Children and Adolescents. Pediatrics 2011;128:S213 2. NCEP Expert Panel. Circulation 2004;110:227 Current Interpretive Data was last revised on 2018. Testing performed by: [address] [address] HDL 24(L) >=40 mg/dL [facility] Comment: Interpretive Data Ages < or = 19 years Acceptable: >45 mg/dL Borderline low: 40-45 mg/dL Low: <40 mg/dL Ages > or = 20 years Desirable: >or= 60 mg/dL Low: <40 mg/dL Literature References: 1. Expert Panel on Integrated Guidelines for Cardiovascular Health and Risk Reduction in Children and Adolescents. Pediatrics 2011;128:S213 2. NCEP Expert Panel. Circulation 2004;110:227 Current Interpretive Data was last revised on 2018. Testing performed by: [address] [address] LDL, calculated 48 <=129 mg/dL [facility] SORIANO Comment: Interpretive Data Ages < or = 19 years Acceptable: <110 mg/dL Borderline high: 110-129 mg/dL High: >or= 130 mg/dL Ages > or = 20 years Optimal: <100 mg/dL Near optimal: 100-129 mg/dL Borderline high: 130-159 mg/dL High: >160 mg/dL Calculated using the Oleg LDL-C estimating equation. This equation was implemented on 2024. Prior to this date LDL-C was estimated using the Friedewald equation. Literature References: 1. Expert Panel on Integrated Guidelines for Cardiovascular Health and Risk Reduction in Children and Adolescents. Pediatrics 2011;128:S213 2. NCEP Expert Panel. Circulation 2004;110:227 3. Oleg Jacinto et al. JEMAL Cardiol. 2019October 02;5(5):540-548. doi: 10.1001/jamacardio.2020.0013 Current Interpretive Data was last revised on 2024. Testing performed by: [address] [address] Non-HDL Cholesterol 70 mg/dL [facility] Comment: Interpretive Data Ages < or = 19 years Acceptable: <120 mg/dL Borderline high: 120-144 mg/dL High: >145 mg/dL Ages > or = 20 years When triglycerides are >200 mg/dL, Non-HDL cholesterol is a secondary target of therapy with treatment goals that are 30 mg/dL greater than the LDL cholesterol target. Literature References: 1. Expert Panel on Integrated Guidelines for Cardiovascular Health and Risk Reduction in Children and Adolescents. Pediatrics 2011;128:S213 2. NCEP Expert Panel. Circulation 2004;110:227 Current Interpretive Data was last revised on 2018. Testing performed by: [address] [address] Chol/HDL ratio 4 [facility] Comment:Testing performed by : [address] [address] Blood 07/31/2024 4:36 AM GREENHOUSE LABORER 07/31/2024 5:43 AM GREENHOUSE LABORER us Margaret Pritchett MD LAB BLOOD ORDERABLES Final Result Performing Organization Address [facility]/ZIP Co de Phone Number [facility] [address] Department [place] [address] * (ABNORMAL) Hemoglobin A1c (07/30/2024 4:52 AM GREENHOUSE LABORER) Hgb A1C 8.2(H) 4.0 - 5.6 % Comment:Testing performed by : [facility], [address] [place] [address]., [address] Estimated Average Glucose 189 mg/dL [facility] Comment: The ADA recommends reporting an estimated Average Glucose (eAG) with all Hemoglobin A1c results using the equation derived from a study of 507 normal and diabetic adults. Minority populations were underrepresented and children were not included. (Diabetes Care 31:3959-5886, 2008). The eAG is not equivalent to a fasting glucose. Testing performed by: [facility], [address] [place] [address]., [address] Blood 07/30/2024 4:52 AM GREENHOUSE LABORER 07/30/2024 5:53 AM GREENHOUSE LABORER us Octavio Mays NP LAB BLOOD ORDERABLES Final Re sult Performing Organization Address [facility] Co de Phone Number [facility] [address] Department [place] [address] * CT Abdomen Pelvis WO Contrast (05/25/2023 2:17 PM GREENHOUSE LABORER) Anatomical Region Laterality Modality Body N/A Computed Tomogra phy 05/25/2023 2:25 PM GREENHOUSE LABORER Narrative 05/25/2023 2:31 PM GREENHOUSE LABORER EXAM DESCRIPTION: CT ABDOMEN PELVIS WO CONTRAST REASON FOR STUDY: Sepsis, KARLA altered mental status and frequent falls. He had a hemorrhagic stroke in March and after recovering has been receiving care at [facility]. Staff there report multiple falls in last 2 weeks. EMS reports patient also has hallucinations which are baseline for him. He is also being treated for a large sacral wound. He is accompanied by his brother who has power of associate attorney is able assist in history. Brother reports he has been treated for UTI recently. TECHNIQUE: CT scan of the abdomen and pelvis performed without intravenous and without oral contrast using helical scanning technique. Reconstructed coronal and sagittal MPR images reviewed. All images stored on PACS. Automated exposure control was used as a dose optimization technique for this examination. COMPARISON: MRI sacrum May 06, 2023 REFERENCE: Per ACR white paper recommendations, unless otherwise specified no follow-up imaging is recommended for incidental renal and adrenal lesions per consensus recommendations based on imaging criteria. Further lab evaluation could be pursued based on clinical findings. FINDINGS: The sensitivity for detection of visceral lesions is diminished without the use of intravenous contrast. LOWER CHEST: Atelectasis/scarring in the lung bases. Trace bilateral pleural effusions. Blood pool is decreased density compared to the interventricular septum and may represent anemia. LIVER: Normal size and density. GALLBLADDER: High attenuating sludge or gallstones in the gallbladder. BILE DUCTS: Not well evaluated without intravenous contrast. SPLEEN: Normal size and density. Benign calcified granulomas. PANCREAS: Unremarkable. ADRENALS: Normal. KIDNEYS/URINARY TRACT: Nonspecific bilateral perinephric fat stranding. No renal calculus or hydronephrosis. Unremarkable urinary bladder. GI: No dilated loops of large or small bowel. The appendix is not visualized however no inflammatory changes in the right lower quadrant of the abdomen. PERITONEUM: Nonspecific presacral fat stranding. No free fluid. No free air. RETROPERITONEUM: No lymphadenopathy. REPRODUCTIVE: Not well evaluated by CT. Prostate gland is nonenlarged. Central prostate calcifications. Tiny bilateral fat containing inguinal hernias. VASCULATURE: No abdominal aortic aneurysm. Mild/moderate atherosclerotic calcifications. MUSCULOSKELETAL: Disc space narrowing and spondylosis of the lumbar spine. Schmorl's node deformity involves the endplates of multiple lumbar vertebral levels. Facet arthropathy in the lumbar spine. Sacral decubitus ulcer extending from S2 through the 2nd coccygeal segment. Destructive changes of the 1st and 2nd coccygeal segments with mild sclerosis. No drainable abscess. OTHER: No other abnormality. IMPRESSION: 1. No acute abnormality in the abdomen or pelvis. 2. Chronic sacral decubitus ulcer with changes of osteomyelitis involving the 1st and 2nd coccygeal segments as seen on prior MRI. THIS IS AN ELECTRONICALLY VERIFIED FINAL REPORT 05/25/2023 2:31 PM - Electronically signed by Jeanette Zambrano D.O. T: Report ID: [id number] Reading Location: [id number] Procedure Note Jeanette Zambrano, - 05/25/2023 EXAM DESCRIPTION: CT ABDOMEN PELVIS WO CONTRAST REASON FOR STUDY: Sepsis, KARLA altered mental status and frequent falls. 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 Staff there report multiple falls in last 2 weeks. EMS reportspatient also has hallucinations which are baseline for him. He is also being treated for a large sacral wound. He is accompanied by his brother whohas power of associate attorney is able assist in history. Brother reports he has been treated for UTI recently. TECHNIQUE: CT scan of the abdomen and pelvis performed without intravenousand without oral contrast using helical scanning technique. Reconstructed coronal and sagittal MPR images reviewed. All images stored on PACS.Automated exposure control was used as a dose optimization technique for this examination. COMPARISON: MRI sacrum May 06, 2023 REFERENCE: Per ACR white paper recommendations, unless otherwise specifiedno follow-up imaging is recommended for incidental renal and adrenal lesionsper consensus recommendations based on imaging criteria. Further labevaluation could be pursued based on clinical findings. FINDINGS: The sensitivity for detection of visceral lesions is diminished without the use of intravenous contrast. LOWER CHEST: Atelectasis/scarring in the lung bases. Trace bilateral pleural effusions. Blood pool is decreased density compared to the interventricular septum and may represent anemia. LIVER: Normal size and density. GALLBLADDER: High attenuating sludge or gallstones in the gallbladder. BILE DUCTS: Not well evaluated without intravenous contrast. SPLEEN: Normal size and density. Benign calcified granulomas. PANCREAS: Unremarkable. ADRENALS: Normal. KIDNEYS/URINARY TRACT: Nonspecific bilateral perinephric fat stranding.No renal calculus or hydronephrosis. Unremarkable urinary bladder. GI: No dilated loops of large or small bowel. The appendix is not visualized however no inflammatory changes in the right lower quadrant ofthe abdomen. PERITONEUM: Nonspecific presacral fat stranding. No free fluid. Nofree air. RETROPERITONEUM: No lymphadenopathy. REPRODUCTIVE: Not well evaluated by CT. Prostate gland is nonenlarged. Central prostate calcifications. Tiny bilateral fat containing inguinal hernias. VASCULATURE: No abdominal aortic aneurysm. Mild/moderateatherosclerotic calcifications. MUSCULOSKELETAL: Disc space narrowing and spondylosis of the lumbarspine. Schmorl's node deformity involves the endplates of multiple lumbarvertebral levels. Facet arthropathy in the lumbar spine. Sacral decubitus ulcer extending from S2 through the 2nd coccygealsegment. Destructive changes of the 1st and 2nd coccygeal segments with mildsclerosis. No drainable abscess. OTHER: No other abnormality. IMPRESSION: 1. No acute abnormality in the abdomen or pelvis. 2. Chronic sacral decubitus ulcer with changes of osteomyelitis involvingthe 1st and 2nd coccygeal segments as seen on prior MRI. THIS IS AN ELECTRONICALLY VERIFIED FINAL REPORT 05/25/2023 2:31 PM - Electronically signed by Jeanette Zambrano D.O. AC T: Report ID: [id number] Reading Location: [place] [id number] Enoch Sullivan MD IMG CT PROCEDURES Final Res ult * Hepatitis panel, acute Blood (04/03/2023 4:00 PM CDT) Hep A IgM Nonreactive Nonreactive [facility] Hep B core IgM Nonreactive Nonreactive [facility] Hep C Ab Nonreactive Nonreactive [facility] Comment:Antibodies to HCV no t detected. Does NOT exclude the possibility of recent exposure to HCV. Current interpretive data was last revised on 22 HepBsAg Nonreactive Nonreactive [facility] Blood 04/03/2023 4:00 PM CDT 04/03/2023 4:17 PM CDT us Sherry Gonzalez NP LAB MICROBIOLOGY - GENERA L ORDERABLES Final Result [facility] Department [place] [address] from Last 3 Months or Most Recently Relevant to Health Maintenance Insurance T MEDICARE [employer] MEDICARE T MEDICARE AET[employer] MEDICARE Advance Directives For more information, please contact: [phone] Documents on File Type Date Recorded Patient Clerical Secretary Expl anation ADVANCE DIRECTIVE 08/08/2024 1:04 PM POLST - Phys Order for PT Preferences ADVANCE DIRECTIVE 09/05/2021 5:08 AM POWER OF [employer] * LIMITED - No CPR (Latest Code Status on File) Date Activated Date Inactivated Comments 10/02/2024 11:51 PM 10/07/2024 6:10 PM Question Answer Comments Provide aggressive medical m anagement before a full cardiopulmonary arrest occurs. Use antibiotics, IV Fluids, and medical treatment unless specifically selected below: No intubation * Full Code Date Activated Date Inactivated Comments 07/29/2024 2:38 PM 08/08/2024 6:11 PM * Full Code Date Activated Date Inactivated Comments 05/17/2024 9:57 AM 06/06/2024 4:16 PM * Full Code Date Activated Date Inactivated Comments 07/25/2023 5:30 PM 07/31/2023 10:08 PM * LIMITED - No CPR Date Activated Date Inactivated Comments 07/25/2023 9:39 AM 07/25/2023 5:30 PM Question Answer Comments Provide aggressive medical m anagement before a full cardiopulmonary arrest occurs. Use antibiotics, IV Fluids, and medical treatment unless specifically selected below: No intubation Healthcare Agents on File Name Relationship Healthcare Agent Relationshi p Communication Hugh Ríos [facility] Care Agent Troy Alexander [facility] Health Car e Agent Care Teams Commercial Banker Relationship Specialty Start Date End Date Queta Williamson NP [address] [facility] [place] [address] PCP - General Nurse Practitioner 06/22/23 AnayaOnesimo inman Si, MD [address] [facility] [address] [place] [id number] Consulting Physician Neurology 07/31/23
[2025-05-05 09:17] LABS: Hematocrit 46.7 % (42.0-52.0); Hemoglobin 14.8 g/dL (14.0-18.0); Immature Granulocyte Percent A 0.2 % (0-0.5); Immature Platelet Fraction Pct 3.6 % (0.9-11.2); Lymphocytes Absolute Auto 1.77 K/mm3 (0.9-3.2); Mean Corpuscular HGB Conc 31.7 g/dl (32-36); Mean Corpuscular Hemoglobin 29.3 pg (26-34); Mean Corpuscular Volume 92.5 fl (80-100); Nucleated Red Blood Cells Absolute Auto 0.000 K/mm3 (0.0-0.012); Nucleated Red Blood Cells Perc 0.0 % (0.0-0.2); Platelet Count Result 124 k/mm3 (150-375); Red Blood Count 5.05 M/mm3 (4.6-6.20); White Blood Count 5.5 K/mm3 (4.5-10.0)
[2025-05-05 09:28] LABS: Hemoglobin A1C 7.0 % (<5.7)
[2025-05-05 09:29] LABS: Alanine Aminotransferase 21 U/L (6-50); Albumin Level 4.1 g/dL (3.5-5.1); Alkaline Phosphatase 83 U/L (38-126); Anion Gap 3 mmol/L (4-12); Aspartate Amino Transferase 29 U/L (17-59); Bilirubin,Total 1.1 mg/dL (0.2-1.3); Blood Urea Nitrogen 16 mg/dL (9-20); Calcium 9.1 mg/dL (8.4-10.2); Carbon Dioxide 32 mmol/L (22-30); Chloride 104 mmol/L (98-107); Cholesterol 119 mg/dL (0-200); Estimated Glomerular Filt Rate > 60; Glucose 154 mg/dL (65-110); HDL Direct 38 mg/dL; Potassium 4.4 mmol/L (3.4-5.0); Sodium 139 mmol/L (137-145); Total Protein 7.5 g/dL (6.3-8.2); Triglycerides 109 mg/dL (<150)
[2025-05-05 10:10] LABS: Prostate Specific Antigen 1.5 ng/mL (< OR = 4.0)
== END 2025-05-05 08:49 | disposition home or self-care (01) ==
PROVIDERS: PCP Internal Medicine; Visit Provider Internal Medicine
DX: Z12.5 Encounter for screening for malignant neoplasm of prostate (principal); E78.2 Mixed hyperlipidemia; E11.9 Type 2 diabetes mellitus without complications; E55.9 Vitamin D deficiency, unspecified
CPT/HCPCS: 36415; 80053; 80061; 82306; 83036; 84153; 85025; 85055; G0103